=== PATIENT | male | born 1945 | race Caucasian/White ===

== ENCOUNTER 2017-02-17 18:05 | Inpatient (IN) | payer MEDICARE, OTHER ==
[~2017-02-17] VITALS: Ht 175.3 cm; Wt 72.0 kg
[2017-02-17] MEDS: SPIRONOLACTONE 25 MG TABLET PO SCH
[2017-02-17] MEDS: METOLAZONE 5 MG TABLET PO SCH
[2017-02-17] MEDS ORDERED: ALLO300T PO (18:20)
[2017-02-17] MEDS ORDERED: METO200T3 PO (18:20)
[2017-02-17] MEDS ORDERED: LOSA100T6 PO (18:20)
[2017-02-17] MEDS ORDERED: ASPI-621 PO (18:20)
[2017-02-17] MEDS ORDERED: SODIUM CHLORIDE FLUSH 10ML SYR IVF ONE (18:30)
[2017-02-17 18:59] LABS: BLOOD UREA NITROGEN 21 mg/dL (7-18)
[2017-02-17 19:08] LABS: IS PT STATUS REG ER OR PRE ER? YES
[2017-02-17] MEDS ORDERED: ONDANSETRON 2MG/ML, 2ML IVPush PRN (21:00)
[2017-02-17] MEDS ORDERED: ENOXAPARIN 40 MG/0.4 ML SQ SCH (21:00)
[2017-02-17 21:57] LABS: IS PT STATUS REG ER OR PRE ER? YES
[2017-02-17 22:01] VITALS: BP 153/98
[2017-02-17] MEDS ORDERED: PNEUMOCOCCAL 23 VACCINE IM-VACC ONE (22:30)
[2017-02-18 01:14] VITALS: BP 136/87
[2017-02-18 03:25] LABS: IS PT STATUS REG ER OR PRE ER? NO
[2017-02-18 03:26] LABS: ASPARTATE AMINO TRANSFERASE 21 U/L (15-37); BLOOD UREA NITROGEN 21 mg/dL (7-18)
[2017-02-18 07:21] VITALS: BP 144/91
[2017-02-18] MEDS: METOLAZONE 5 MG TABLET PO SCH ×2 (08:39→17:34)
[2017-02-18] MEDS: ALLOPURINOL 300 MG TABLET PO SCH (08:39)
[2017-02-18] MEDS: ASPIRIN 81 MG TABLET EC PO SCH (08:39)
[2017-02-18] MEDS: SPIRONOLACTONE 25 MG TABLET PO SCH ×2 (08:39→20:09)
[2017-02-18] MEDS: METOPROLOL SUCCINATE 100 MG TAB.ER.24H PO SCH ×2 (09:00→11:36)
[2017-02-18] MEDS ORDERED: HEPARIN 5,000 UNITS/ML, 1ML IV PRN (15:00)
[2017-02-18] MEDS ORDERED: HEPARIN 5,000 UNITS/ML, 1ML IV ONE (15:00)
[2017-02-18] MEDS ORDERED: WARFARIN MODERAT DOSE PROTOCOL XX PRN (15:30)
[2017-02-18 16:27] LABS: C-REACTIVE PROTEIN, QUANT 0.94 mg/dL (0.02-0.49)
[2017-02-18] MEDS ORDERED: TORSEMIDE 20 MG TABLET PO SCH (17:00)
[2017-02-18] MEDS: HEPARIN 25,000 UNITS/500ML PMX 500 ML IV PRN (17:15)
[2017-02-18] MEDS: LOSARTAN 50MG TABLET PO SCH (17:34)
[2017-02-18] MEDS ORDERED: WARFARIN 5 MG TABLET PO-COUM ONE (18:00)
[2017-02-18 20:04] VITALS: BP 125/93
[2017-02-18] MEDS ORDERED: LOVASTATIN 40 MG TABLET PO SCH (21:00)
[2017-02-19 01:38] VITALS: BP 137/94
[2017-02-19 05:29] LABS: ANTI-Xa-UNFRACTIONATED HEP 0.32 IU/mL (0.30-0.70)
[2017-02-19 05:35] LABS: BLOOD UREA NITROGEN 19 mg/dL (7-18)
[2017-02-19 05:46] LABS: ASPARTATE AMINO TRANSFERASE 25 U/L (15-37)
[2017-02-19 07:35] VITALS: BP 148/89
[2017-02-19] MEDS: ALLOPURINOL 300 MG TABLET PO SCH (08:31)
[2017-02-19] MEDS: ASPIRIN 81 MG TABLET EC PO SCH (08:31)
[2017-02-19] MEDS: LOSARTAN 50MG TABLET PO SCH (08:31)
[2017-02-19] MEDS: SPIRONOLACTONE 25 MG TABLET PO SCH ×2 (08:32→20:10)
[2017-02-19] MEDS: METOLAZONE 5 MG TABLET PO SCH ×2 (08:32→18:19)
[2017-02-19] MEDS: METOPROLOL SUCCINATE 100 MG TAB.ER.24H PO SCH (08:38)
[2017-02-19 14:34] VITALS: BP 105/71
[2017-02-19] MEDS ORDERED: WARFARIN 5 MG TABLET PO-COUM ONE (18:00)
[2017-02-19 19:12] VITALS: BP 116/71
[2017-02-19] MEDS: HEPARIN 25,000 UNITS/500ML PMX 500 ML IV PRN (19:27)
[2017-02-20 02:32] VITALS: BP 128/87
[2017-02-20 04:41] LABS: BLOOD UREA NITROGEN 22 mg/dL (7-18)
[2017-02-20] MEDS: METOPROLOL SUCCINATE 100 MG TAB.ER.24H PO SCH (06:13)
[2017-02-20] MEDS: METOLAZONE 5 MG TABLET PO SCH ×3 (07:30→09:00)
[2017-02-20] MEDS: SPIRONOLACTONE 25 MG TABLET PO SCH ×3 (08:30→09:00)
[2017-02-20] MEDS: ASPIRIN 81 MG TABLET EC PO SCH (08:30)
[2017-02-20] MEDS: ALLOPURINOL 300 MG TABLET PO SCH (08:30)
[2017-02-20] MEDS: LOSARTAN 50MG TABLET PO SCH ×3 (08:30→09:00)
[2017-02-20 08:41] VITALS: BP 122/82
[2017-02-20] MEDS: MAGNESIUM OXIDE 400 MG TABLET PO SCH ×2 (09:21→19:52)
[2017-02-20 13:44] VITALS: BP 126/87
[2017-02-20] MEDS ORDERED: WARFARIN 5 MG TABLET PO-COUM ONE (15:00)
[2017-02-20 20:07] VITALS: BP 101/81
[2017-02-20] MEDS: HEPARIN 25,000 UNITS/500ML PMX 500 ML IV PRN (21:37)
[2017-02-21 01:48] VITALS: BP 128/88
[2017-02-21 05:36] LABS: ANTI-Xa-UNFRACTIONATED HEP 0.35 IU/mL (0.30-0.70)
[2017-02-21 05:48] LABS: ASPARTATE AMINO TRANSFERASE 25 U/L (15-37); BLOOD UREA NITROGEN 18 mg/dL (7-18)
[2017-02-21] MEDS: METOPROLOL SUCCINATE 100 MG TAB.ER.24H PO SCH (06:09)
[2017-02-21 07:23] VITALS: BP 132/94
[2017-02-21] MEDS: ALLOPURINOL 300 MG TABLET PO SCH (08:19)
[2017-02-21] MEDS: ASPIRIN 81 MG TABLET EC PO SCH (08:19)
[2017-02-21] MEDS: SPIRONOLACTONE 25 MG TABLET PO SCH (08:19)
[2017-02-21] MEDS: LOSARTAN 50MG TABLET PO SCH (08:19)
[2017-02-21] MEDS: MAGNESIUM OXIDE 400 MG TABLET PO SCH ×2 (08:19→20:32)
[2017-02-21] MEDS: METOLAZONE 5 MG TABLET PO SCH (08:20)
[2017-02-21] MEDS ORDERED: FUROSEMIDE 20 MG/2 ML ONE (08:32)
[2017-02-21] MEDS: FUROSEMIDE 20 MG/2 ML IV SCH ×2 (08:34→16:35)
[2017-02-21] MEDS ORDERED: TORSEMIDE 20 MG TABLET PO SCH (09:30)
[2017-02-21 13:06] LABS: ANTITHROMBIN III ACTIVITY 91 % (75-135)
[2017-02-21 13:47] VITALS: BP 112/74
[2017-02-21 14:06] LABS: PROTEIN S FREE 101 % (57-157); PROTEIN S FUNCTIONAL 110 % (63-140); PROTEIN S TOTAL 86 % (60-150)
[2017-02-21] MEDS: POTASSIUM CHLORIDE 20 MEQ TAB.ER.PRT PO SCH (16:35)
[2017-02-21] MEDS ORDERED: WARFARIN 7.5 MG TABLET PO-COUM ONE (18:00)
[2017-02-21 20:00] VITALS: BP 106/72
[2017-02-22] MEDS: HEPARIN 25,000 UNITS/500ML PMX 500 ML IV PRN (00:11)
[2017-02-22 03:00] VITALS: BP 131/90
[2017-02-22 05:17] VITALS: BP 124/79
[2017-02-22] MEDS: METOPROLOL SUCCINATE 100 MG TAB.ER.24H PO SCH (05:19)
[2017-02-22 05:28] LABS: BLOOD UREA NITROGEN 18 mg/dL (7-18); C-REACTIVE PROTEIN, QUANT 0.65 mg/dL (0.02-0.49)
[2017-02-22 05:31] LABS: ASPARTATE AMINO TRANSFERASE 29 U/L (15-37)
[2017-02-22 07:06] LABS: DILUTE PROTHROMBIN TIME (DPT) 52.9 sec (0.0-55.0); DILUTE RUSSELL'S VIPER VENOM 37.6 sec (0.0-47.0); LUPUS REFLEX INTERPRETATION Comment: (.); PTT-LA 38.7 sec (0.0-51.9)
[2017-02-22] MEDS: POTASSIUM CHLORIDE 20 MEQ TAB.ER.PRT PO SCH ×2 (08:00→20:22)
[2017-02-22 08:02] VITALS: BP 123/84
[2017-02-22] MEDS: ASPIRIN 81 MG TABLET EC PO SCH (08:15)
[2017-02-22] MEDS: ALLOPURINOL 300 MG TABLET PO SCH (08:15)
[2017-02-22] MEDS: MAGNESIUM OXIDE 400 MG TABLET PO SCH ×2 (08:16→20:22)
[2017-02-22] MEDS: LOSARTAN 50MG TABLET PO SCH (08:16)
[2017-02-22 14:00] VITALS: BP 109/72
[2017-02-22] MEDS ORDERED: WARFARIN 7.5 MG TABLET PO-COUM SCH (18:00)
[2017-02-22 19:20] VITALS: BP 103/68
[2017-02-23 02:20] VITALS: BP 117/82
[2017-02-23] MEDS: HEPARIN 25,000 UNITS/500ML PMX 500 ML IV PRN (02:24)
[2017-02-23 05:14] VITALS: BP 133/89
[2017-02-23] MEDS: METOPROLOL SUCCINATE 100 MG TAB.ER.24H PO SCH (05:15)
[2017-02-23 06:29] LABS: BLOOD UREA NITROGEN 20 mg/dL (7-18)
[2017-02-23 06:39] VITALS: BP 125/81
[2017-02-23] MEDS: POTASSIUM CHLORIDE 20 MEQ TAB.ER.PRT PO SCH (08:00)
[2017-02-23] MEDS: ALLOPURINOL 300 MG TABLET PO SCH (08:37)
[2017-02-23] MEDS: ASPIRIN 81 MG TABLET EC PO SCH (08:37)
[2017-02-23] MEDS: MAGNESIUM OXIDE 400 MG TABLET PO SCH (08:37)
[2017-02-23] MEDS: LOSARTAN 50MG TABLET PO SCH (08:38)
[2017-02-23] MEDS ORDERED: FUROSEMIDE 40 MG/4 ML ONE (08:43)
[2017-02-23] MEDS ORDERED: FUROSEMIDE 40 MG/4 ML IV ONE (09:00)
[2017-02-23] MEDS ORDERED: POTA20TA6 PO (09:38)
[2017-02-23] MEDS ORDERED: METO-95 PO (09:38)
[2017-02-23] MEDS ORDERED: MAGN400T26 PO (09:38)
[2017-02-23] MEDS ORDERED: WARF5TAB PO-COUM (09:38)
[2017-02-23] MEDS ORDERED: LOSA50TA2 PO (09:38)
[2017-02-23] MEDS ORDERED: ASPI-621 PO (09:38)
[2017-02-23] MEDS ORDERED: FURO40TA6 PO (09:38)
[2017-02-23] MEDS ORDERED: SIMV20TA PO ×2 (09:40→09:41)
[2017-02-23 10:06] LABS: BARTONELLA HENSELAE IGG Negative titer (Neg:<1:320); BARTONELLA HENSELAE IGM Negative titer (Neg:<1:100); BARTONELLA QUINTANA IGM Negative titer (Neg:<1:100)
[2017-02-23 12:06] LABS: BRUCELLA IGG Negative (Negative); BRUCELLA IGM Negative (Negative); CHLAMYDIA PNEUMONIAE IGM <1:10 (Neg:<1:10)
[2017-02-23 17:07] LABS: FACTOR II DNA ANALYSIS Negative (.)
[2017-02-23] MEDS ORDERED: WARFARIN 5 MG TABLET PO-COUM ONE (18:00)
[2017-02-24] MEDS ORDERED: FUROSEMIDE 40 MG TABLET PO SCH (09:00)
== END 2017-02-23 13:20 | disposition home or self-care (01) | DRG 288 ==
LOC: ED 19:42 → SUATTDRO 20:15 → EDIP 20:24 → 5SO 22:02 → DCLOUNGE 02-23 12:40
PROVIDERS: ADMIT Internal Medicine; ATTEND Internal Medicine
DX: I33.0 Acute and subacute infective endocarditis (principal); I50.23 Acute on chronic systolic (congestive) heart failure; N17.0 Acute kidney failure with tubular necrosis; I13.0 Hypertensive heart and chronic kidney disease with heart failure and stage 1 through stage 4 chronic kidney disease, or unspecified chronic kidney disease; E87.1 Hypo-osmolality and hyponatremia; D68.69 Other thrombophilia; J98.11 Atelectasis; Q23.1 Congenital insufficiency of aortic valve; E78.00 Pure hypercholesterolemia, unspecified; E78.5 Hyperlipidemia, unspecified; I25.10 Atherosclerotic heart disease of native coronary artery without angina pectoris; I25.5 Ischemic cardiomyopathy; I34.0 Nonrheumatic mitral (valve) insufficiency; G47.00 Insomnia, unspecified; I48.0 Paroxysmal atrial fibrillation; I51.3 Intracardiac thrombosis, not elsewhere classified; M10.9 Gout, unspecified; N18.3 Chronic kidney disease, stage 3 (moderate); Z87.891 Personal history of nicotine dependence; Z88.0 Allergy status to penicillin; Z95.1 Presence of aortocoronary bypass graft; Z95.2 Presence of prosthetic heart valve; Z95.810 Presence of automatic (implantable) cardiac defibrillator; Z88.8 Allergy status to other drugs, medicaments and biological substances; Z23 Encounter for immunization; Z66 Do not resuscitate
CPT/HCPCS: 36415; 71010; 71250; 80048; 80053; 80061; 81003; 81240; 81241; 82040; 82378; 83735; 83880; 84100; 84145; 84443; 84484; 85025; 85300; 85301; 85302; 85305; 85306; 85520; 85610; 85613; 85651; 85670; 85705; 85730; 85732; 86038; 86140; 86147; 86301; 86611; 86622; 86631; 86632; 86635; 86738; 87040; 87798; 90732; 93005; 93306; 93970; 99285; J1644; J1650; J1940; J2405